=== PATIENT | male | born 1950 | race Caucasian/White ===

== ENCOUNTER 2018-02-07 12:54 | Emergency (ER) | payer MEDICARE | END 2018-02-07 14:15 | disposition home or self-care (01) | LOC: MADERS 12:54 | DX: I10 Essential (primary) hypertension (principal); E11.9 Type 2 diabetes mellitus without complications; J44.9 Chronic obstructive pulmonary disease, unspecified; F17.210 Nicotine dependence, cigarettes, uncomplicated; E78.5 Hyperlipidemia, unspecified | CPT/HCPCS: 99283 ==

== ENCOUNTER 2018-04-07 01:57 | Emergency (ER) | payer MEDICARE ==
[2018-04-07] MEDS ORDERED: hydrALAZINE 20 MG/ML VIAL ONE (02:27)
[2018-04-07 02:30] LABS: #Basophils 0.2 thou/uL (0.0-0.2); #Eosinphils 0.5 thou/uL (0.0-0.7); #Lymphocytes 1.7 thou/uL (1.20-3.40); #Monocytes 1.2 thou/uL (0.11-0.59); #Neutrophils 11.4 thou/uL (1.40-6.50); %Basophils 1.2 % (0.0-1.0); %Eosinophils 3.3 % (0.0-10.0); %Lymphocytes 11.2 % (21.0-51.0); %Monocytes 8.1 % (0.0-10.0); %Neutrophils 76.1 % (42.0-75.0); Hemoglobin 16.9 g/dL (14.0-18.0); Mean Corpuscular HGB CONC 32.5 g/dL (32.0-36.0); Mean Corpuscular Hemoglobin 29.2 pg (27.0-31.0); Mean Corpuscular Volume 89.6 fL (78.0-98.0); Mean Platelet Volume 7.4 fL (7.4-10.4); Platelet Count 252 thou/uL (130-400); RBC Distribution Width 13.1 % (11.5-14.5); Red Blood Cell (RBC) Count 5.81 mill/uL (4.70-6.10); White Blood Cell (WBC) Count 14.9 thou/uL (4.8-10.8)
[2018-04-07 02:32] LABS: H&H DL Code MP
[2018-04-07 02:48] LABS: ALT (SGPT) 19 U/L (8-55); AST (SGOT) 14 U/L (5-34); Alkaline Phosphatase 100 U/L (40-150); Anion Gap 15 mmol/L (10-20); BUN (Urea Nitrogen) 16 mg/dL (8.4-25.7); Bilirubin, Total 0.6 mg/dL (0.2-1.2); Calc. Creatinine Clearance 0 mL/min (70-130); Calcium 9.1 mg/dL (7.8-10.44); Carbon Dioxide 32 mmol/L (23-31); Chloride 99 mmol/L (98-107); Estimated GFR-MDRD 52; Globulin 2.1 g/dL (2.4-3.5); Glucose 135 mg/dL (80-115); Lipase 22 U/L (8-78); Potassium 3.5 mmol/L (3.5-5.1); Protein, Total 6.1 g/dL (5.8-8.1); Sodium 142 mmol/L (136-145)
[2018-04-07] MEDS ORDERED: Fentanyl 100 MCG/2 ML VIAL ONE ×2 (03:06→05:12)
[2018-04-07] MEDS ORDERED: Piperacillin/Tazobactam 4.5 GM VIAL ONE (06:14)
[2018-04-07] MEDS ORDERED: Sodium Chloride 0.9% 100 ML ONE (06:15)
[2018-04-07 06:16] LABS: Lactic Acid 2.3 mmol/L (0.5-2.2)
[2018-04-07] MEDS ORDERED: Sodium Chloride 0.9% 1,000 ML ONE (07:44)
[2018-04-07] MEDS ORDERED: HYDROmorphone 0.5 MG/0.5 ML SYRINGE ONE (07:44)
--- NOTE | 2018-04-07 07:51 | RAD ---
ACUTE ABDOMINAL SERIES: INDICATION: Abdominal pain with an uncooperative patient. COMPARISON: Prior single view of the chest dated 12/08/2017. FINDINGS: Left-sided pleural parenchymal opacity is present. There is cardiomegaly with pulmonary vascular con gestion and a suggestion of perihilar edema. The patient is rotated to the left limiting the exam. Penetration is poor on the abdominal series making visualization of the bowel gas pattern and evaluat ion for free air limited. There is no overt change to suggest the presence of obstruction. There is scattered degenerative change. IMPRESSION: 1. Small left pleural effusion and left basilar airspace opacity may reflect a component of atelecta sis or pneumonia. Recommend correlation and followup. 2. Cardiomegaly with pulmonary vascular congestion suggests possible volume overload of congestive h eart failure. POS: BH
--- NOTE | 2018-04-07 08:11 | CT ---
CT OF THE CHEST AND ABDOMEN AND PELVIS WITH IV CONTRAST: INDICATION: Postoperative pain from a recent intraabdominal procedure in [place], [place]. FINDINGS: CHEST: There is scattered emphysema. There is a calcified granuloma within the right upper lobe. There are small bilateral pleural effusi ons. There is airspace consolidation of both lower lobes, left greater than right. No pneumothorax is evident. There is wall thickening involving the mid to distal esophagus. There is a small hiatal hernia. There is enteric contrast within the mid esophagus. No pathologically enlarged lymph nodes are evident. There is free air and enteric contrast within the upper abdomen suspicious for the presence of a smal l bowel injury. This is suspected within possibly a loop of jejunum within the upper abdomen. This is suspected within possibly a loop of jejunum within the upper abdomen. There is postsurgical lilly e of a prior anterior abdominal wall hernia repair. There is gas within the subcutaneous tissues of the upper abdomen. There is wall thickening involving portions of the left transverse mesocolon as w ell as portions of the distal transverse colon which may be reactive in nature. There is some suspec nicholas venous hemorrhage seen within the transverse mesocolon on image 71 of series 2. Small locules of hemorrhage are present within the right aspect of the mesentery measuring 4.6 cm on image 76 of seri es 2. A small amount of hemorrhage is seen within the paracolonic gutters as well as within the righ t lower quadrant of the abdomen and within the pelvis. The gallbladder is surgically absent. No focal hepatic lesion is evident. The spleen, adrenal gland s, and pancreas appear within normal limits. The left adrenal gland demonstrates some mild diffuse h ypertrophy. There is a hypodensity within the left renal lower pole on image 72 of series 2 measurin g 1.4 cm difficult to fully characterize on the current examination. There is an infrarenal abdominal aortic aneurysm with prominent atherosclerotic irregularity measurin g 3.6 cm on image 71 of series 2. Mild ectasia of both common iliac arteries. There is scattered co lonic diverticula. The bladder is moderately distended. There are bilateral pars defects at L5. There is scattered degenerative and osteoarthritic change. No definite acute osseous abnormality is evident. IMPRESSION: 1. Findings suspicious for full-thickness bowel injury within the upper abdomen possibly from a loop of jejunum. There is enteric contrast and free air within the anterior aspect of the upper abdomen. There is postprocedural change of a prior anterior abdominal wall hernia repair. Surgical consulta tion is recommended. 2. Small amount of suspected venous hemorrhaging seen within the region of the transverse mesocolon with a small amount of hemorrhage seen within the right aspect of the mesentery as well as within the paracolonic gutters and pelvis. 3. Bibasilar airspace consolidation, left greater than right, with small bilateral pleural effusions suspicious for pneumonia or aspiration. 4. Wall thickening present within the esophagus is suspicious for the presence of esophagitis. Ther e is a small hiatal hernia. 5. Colonic diverticulosis. 6. Moderate distention of the bladder. 7. Infrarenal abdominal aortic aneurysm. 8. Chronic findings as above. 9. Findings were discussed with Dr. Segovia at 5:55 a.m. on 04/07/2018. CODE CR POS:
[2018-04-07] MEDS ORDERED: Iopamidol 370 76% 75 ML VIAL FS ONE (10:56)
[2018-04-07] MEDS ORDERED: Sodium Chloride 0.9% 1,000 ML BAG ONE (13:25)
== END 2018-04-07 09:04 | disposition short-term general hospital (02) ==
LOC: MADERS 01:57
DX: I10 Essential (primary) hypertension (principal); K63.1 Perforation of intestine (nontraumatic); J18.9 Pneumonia, unspecified organism; E11.9 Type 2 diabetes mellitus without complications; E78.5 Hyperlipidemia, unspecified; J44.9 Chronic obstructive pulmonary disease, unspecified; F17.210 Nicotine dependence, cigarettes, uncomplicated
CPT/HCPCS: 36415; 71260; 74022; 74177; 80053; 83605; 83690; 83880; 84484; 85025; 93005; 96361; 96365; 96375; 96376; J0360; J1170; J2543; J3010; J7050; J7620

== ENCOUNTER 2018-06-30 15:54 | Emergency (ER) | payer MEDICARE ==
[~2018-06-30 15:54] MED LIST: Iopamidol 370 76% 100 ML VIAL ONE
--- NOTE | 2018-06-30 16:37 | RAD ---
XR Chest 1 View Portable HISTORY: Cough COMPARISON: 12/08/2017 FINDINGS: The heart is enlarged. There is tortuous. There is continued elevation of the left hemidiap hragm. There is pulmonary vascular congestion. No lobar consolidation, pneumothoraces or large effusions are identified.
[2018-06-30 17:14] LABS: ALT (SGPT) 27 U/L (8-55); AST (SGOT) 49 U/L (5-34); Albumin 3.8 g/dL (3.4-4.8); Alkaline Phosphatase 93 U/L (40-150); Anion Gap 15 mmol/L (10-20); BUN (Urea Nitrogen) 24 mg/dL (8.4-25.7); Bilirubin, Total 0.7 mg/dL (0.2-1.2); CK (CPK) 1805 U/L (30-200); Calc. Creatinine Clearance 0 mL/min (70-130); Carbon Dioxide 30 mmol/L (23-31); Chloride 97 mmol/L (98-107); Estimated GFR-MDRD 33; Globulin 2.9 g/dL (2.4-3.5); Glucose 83 mg/dL (80-115); Lipase 8 U/L (8-78); Potassium 3.3 mmol/L (3.5-5.1); Protein, Total 6.7 g/dL (5.8-8.1); Sodium 139 mmol/L (136-145)
[2018-06-30 17:15] LABS: Band 5 % (5-11); Hemoglobin 15.2 g/dL (14.0-18.0); Lymphocytes 1 % (21-51); MDiff Complete? YES; Mean Corpuscular HGB CONC 32.6 g/dL (32.0-36.0); Mean Corpuscular Volume 85.8 fL (78.0-98.0); Mean Platelet Volume 7.4 fL (7.4-10.4); Monocytes 2 % (0-10); Neutrophil 86 % (42-75); Platelet Count 216 thou/uL (130-400); Platelet Morphology Comment Appears Adequate; RBC Morphology Normal; Reactive Lymphocytes 6 % (0-10); Red Blood Cell (RBC) Count 5.42 mill/uL (4.70-6.10); White Blood Cell (WBC) Count 15.3 thou/uL (4.8-10.8)
[2018-06-30] MEDS ORDERED: Sodium Chloride 0.9% 1,000 ML ONE ×2 (17:26→19:38)
[2018-06-30 17:34] LABS: CKMB 7.7 ng/mL (0-6.6)
[2018-06-30] MEDS ORDERED: Aspirin 325 MG TAB ONE (18:24)
--- NOTE | 2018-06-30 18:30 | CT ---
CT BRAIN NONCONTRAST: DATE: 06/30/2018 HISTORY: Head trauma from fall FINDINGS: There is no evidence of acute intra-axial or extra-axial hemorrhage. There is no midline shift or any other mass effect. There is no extra-axial fluid collection. There is no evidence of obstructive hydrocephalus. Calvarium is intact. There is diffuse brain parenchymal volume loss. There are low att enuation areas in the white matter. These are nonspecific, but in a patient of this age, they are probably chronic ischemic white matter changes due to microvascular atherosclerosis. IMPRESSION: 1) No acute intracranial findings. 2) involutional changes and chronic ischemic white matter changes.
--- NOTE | 2018-06-30 18:58 | CT ---
Contrast-enhanced CT images of the chest, abdomen and pelvis. HISTORY: Fall one day ago Contrast-enhanced images of the chest abdomen and pelvis is obtained. Bibasilar areas of atelectasis and some left lower lobe consolidation seen. This may represent possib le left lower lobe pneumonia or mass. This was seen on the patient's previous CT from April 07, 2018. Atherosclerotic calcination seen in the abdominal aorta. Coronary artery calcifications seen. No evidence of mediastinal lymphadenopathy or masses seen. There is debris seen in the esophagus concerning for possible esophageal stricture. Correlate with di rect visualization. The liver and spleen are unremarkable. The pancreas is unremarkable. The gallbladder is been surgically removed. Areas of calcified and noncalcified plaque seen in the descending thoracic and abdominal aorta. Adrenal glands unremarkable. The kidneys are unremarkable. No dilated loops of small bowel seen. Extensive descending and sigmoid colonic diverticulosis is present. Left SI joint anterior bridging osteophytes seen. Bilateral L5 pars interarticularis defects seen wit h mild anterolisthesis of L5 on S1. IMPRESSION: No evidence of acute intrathoracic, abdominal or pelvic pathology seen. Soft tissue mater ial and possible debris seen within the esophagus. Correlate with direct visualization. Transcribed Date/Time: 06/30/2018 7:24 PM
[2018-06-30 20:39] LABS: Lactic Acid 1.8 mmol/L (0.5-2.2)
== END 2018-06-30 20:35 | disposition short-term general hospital (02) ==
LOC: MADERS 15:54
DX: M62.82 Rhabdomyolysis (principal); E11.9 Type 2 diabetes mellitus without complications; J44.9 Chronic obstructive pulmonary disease, unspecified; E78.5 Hyperlipidemia, unspecified; F17.210 Nicotine dependence, cigarettes, uncomplicated; I10 Essential (primary) hypertension; Z79.82 Long term (current) use of aspirin; Z79.899 Other long term (current) drug therapy; W19.XXXA Unspecified fall, initial encounter
CPT/HCPCS: 36415; 70450; 71045; 71260; 74177; 80053; 82550; 82553; 83605; 83690; 83880; 84484; 85025; 93005; 96360; 96361; J7050; Q9967